=== PATIENT | female | born 1970 | race Caucasian/White ===

== ENCOUNTER 2019-07-17 18:24 | Emergency (ER) | payer OTHER ==
[2019-07-17 18:36] VITALS: BMI 24.0
[2019-07-17 19:11] LABS: BASO % 0.5 % (0-2.0); EOS % 1.8 % (0-4.5); HEMATOCRIT 40.1 % (32.4-45.2); HEMOGLOBIN 13.7 GM/dL (10.7-15.3); LYMPH % 34.8 % (8-40); MCH 32.5 pg (25.7-33.7); MCHC 34.2 g/dl (32.0-36.0); MEAN CELL VOLUME 95.1 fl (80-96); MEAN PLT VOLUME 6.9 fl (7.5-11.1); MONO % 7.3 % (3.8-10.2); NEUT % 55.6 % (42.8-82.8); PLATELET COUNT 285 K/MM3 (134-434); RBC 4.22 M/mm3 (3.60-5.2); WHITE BLOOD COUNT 7.3 K/mm3 (4.0-10.0)
[2019-07-17] MEDS ORDERED: ACETAMINOPHEN 650 MG/20.3 ML ORAL SOLUTION (CUPS) PO ONE (19:21)
[2019-07-17] MEDS ORDERED: ACETAMINOPHEN 1000 MG/100 ML VIAL (NON FORMULARY) IVPB ONE (19:48)
[2019-07-17] MEDS ORDERED: ACETAMINOPHEN INJECTION 100 ML IVPB ONE (19:52)
[2019-07-17 20:38] VITALS: TEMP 98.1
[2019-07-17 20:42] LABS: PH,URINE 6.5 (5.0-8.0); URINE APPEARANCE Slightly Cloudy; URINE BILIRUBIN 1+ (NEGATIVE); URINE COLOR Red; URINE GLUCOSE (UA) Negative (NEGATIVE); URINE KETONE Trace (NEGATIVE); URINE LEUK ESTERASE Trace (NEGATIVE); URINE NITRITE Positive (NEGATIVE); URINE PROTEIN 3+ (NEGATIVE); URINE UROBILINOGEN 0.2 mg/dL (0.2-1.0)
[2019-07-17 20:54] LABS: EPI CELLS 3.3 /HPF (0-5/HPF); HYALINE CASTS 0.81 /lpf (0-8); URINE BACTERIA 0 /hpf (NEGATIVE); URINE RBC 1057.5 /hpf (0-4); URINE WBC 3.1 /hpf (0-5)
--- NOTE | 2019-07-17 21:15 | PDOC ---
Documentation entered by Jennifer Zelaya SCRIBE, acting as scribe for Claire Mistry MD. Claire Mistry MD: This documentation has been prepared by the scribe, Jennifer Zelaya SCRIBE, under my direction and personally reviewed by me in its entirety. I confirm that the documentation accurately reflects all work, treatment, procedures, and medical decision making performed by me. History of Present Illness - General Chief Complaint: Vaginal Bleeding Stated Complaint: 4 WEEKS /VAGINAL BLEEDING Time Seen by Provider: 07/17/19 19:01 History Source: Patient Exam Limitations: No Limitations - History of Present Illness Initial Comments: 07/17/19 19:54 The patient is a 49-year-old female with no significant past medical history who presents to the emergency department with vaginal bleeding. The patient is s /p in vitro 06/29, presents today with vaginal bleeding and lower abdominal pain. Denies daily use of medications, but reports daily use of . The patient reports she had a miscarriage 2 years ago. Allergies: Seafood and naproxen FACILITY MAINTENANCE MANAGER: Dr. Isi Francois. Past History - Past Medical History Allergies/Adverse Reactions: Allergies Allergy/AdvReac Type Severity Reaction Status Date / Time fish derived Allergy Intermediate Verified 07/17/19 18:31 naproxen sodium Allergy Intermediate Verified 07/17/19 18:31 [From Anaprox] Home Medications: Ambulatory Orders Medroxyprogesterone Acet [Medroxyprogesterone Acetate] 10 mg PO DAILY 05/15/14 Cephalexin Monohydrate [Keflex -] 500 mg PO BID #20 capsule 07/17/19 Estradiol 07/17/19 Anemia: No Asthma: No Cancer: No Cardiac Disorders: No CVA: No COPD: No CHF: No Dementia: No Diabetes: No GI Disorders: No Disorders: No HTN: No Hypercholesterolemia: No Liver Disease: No Seizures: No Thyroid Disease: No - Surgical History Abdominal Surgery: No Appendectomy: No Cardiac Surgery: No Lung Surgery: No Neurologic Surgery: No Orthopedic Surgery: No - Reproductive History Is Patient Now?: Yes (#): 2 Para: 0 Spontaneous : 1 - Psycho Social/Smoking Cessation Hx Smoking History: Never smoked Hx Alcohol Use: No Drug/Substance Use Hx: No Substance Use Type: None Hx Substance Use Treatment: No Review of Systems - Review of Systems Able to Perform ROS?: Yes Comments:: 07/17/19 19:54 CONSTITUTIONAL: Absent: fever, chills, diaphoresis, generalized weakness, malaise, loss of appetite HEENT: Absent: rhinorrhea, nasal congestion, throat pain, throat swelling, difficulty swallowing, mouth swelling, ear pain, eye pain, visual Changes CARDIOVASCULAR: Absent: chest pain, syncope, palpitations, irregular heart rate, lightheadedness , peripheral edema RESPIRATORY: Absent: cough, shortness of breath, dyspnea with exertion, orthopnea, wheezing, stridor, hemoptysis GASTROINTESTINAL: +lower abdominal pain. Absent: abdominal distension, nausea, vomiting, diarrhea, constipation, melena, hematochezia GENITOURINARY: +vaginal bleeding. Absent: dysuria, frequency, urgency, hesitancy, flank pain, genital pain MUSCULOSKELETAL: Absent: myalgia, arthralgia, joint swelling SKIN: Absent: rash, itching, pallor HEMATOLOGIC/IMMUNOLOGIC: Absent: easy bleeding, easy bruising, lymphadenopathy, frequent infections ENDOCRINE: Absent: unexplained weight gain, unexplained weight loss, heat intolerance, cold intolerance NEUROLOGIC: Absent: headache, focal weakness or paresthesias, dizziness, unsteady gait, seizure, mental status changes, bladder or bowel incontinence PSYCHIATRIC: Absent: anxiety, depression, suicidal or homicidal ideation, hallucinations. *Physical Exam - Vital Signs Last Vital Signs Temp Pulse Resp BP Pulse Ox 98 F 66 18 142/71 99 07/17/19 18:33 07/17/19 18:33 07/17/19 18:33 07/17/19 18:33 07/17/19 18:33 - Physical Exam 07/17/19 20:18 GENERAL: Well-appearing, well-nourished 49 year old female, No apparent distress. HEENT: Normocephalic, atraumatic. PERRL, EOM intact. CARDIOVASCULAR: Normal S1, S2. Regular rate and rhythm. PULMONARY: Clear to auscultation bilaterally. ABDOMEN: Soft, non-distended, non-tender. : exam deferred at this time. EXTREMITIES: Normal ROM in all four extremities. No gross deformities. SKIN: Warm, dry. No rash NEUROLOGICAL: No focal neurological deficits. Conversant and ambulatory with a steady gait. ED Treatment Course - LABORATORY CBC & Chemistry Diagram: 07/17/19 19:00 - ADDITIONAL ORDERS Additional order review: 07/17/19 19:00 RBC 4.22 MCV 95.1 MCHC 34.2 RDW 13.0 MPV 6.9 L Neutrophils % 55.6 Lymphocytes % 34.8 D Monocytes % 7.3 Eosinophils % 1.8 Basophils % 0.5 - RADIOLOGY Radiology Studies Ordered: Category Date Time Status TRANSVAGINAL US PREG [US] Stat Ultrasound 07/17/19 19:12 Taken - Medications Given in the ED: ED Medications Discontinued Medications Generic Name Dose Route Start Last Admin Trade Name Iesha PRN Reason Stop Dose Admin Acetaminophen 650 mg 07/17/19 19:21 07/17/19 19:53 Tylenol Oral Solution - PO 07/17/19 19:22 Not Given ONCE ONE Acetaminophen 1,000 mg 07/17/19 19:48 07/17/19 20:07 Ofirmev Injection - IVPB 07/17/19 19:49 1,000 mg ONCE ONE Administration Medical Decision Making - Medical Decision Making 07/17/19 21:11 Endovaginal ultrasound findings 4.7 mm hypoechoic structure in the fundal portion of the endometrial stripe which may represent an early gestational sac at 5 weeks 2 days No pole, no yolk sac, no activity is noted Cannot exclude demise or ectopic 1 cm left ovarian cyst Right ovary appears normal Duplex ultrasound is appropriate arterial and venous flow to both ovaries Case discussed with Dr. Nixon who is covering for Dr. Jimenez Francois her lead embedded software engineer Patient follow-up tomorrow with her FACILITY MAINTENANCE MANAGER for repeat beta-hCG and ultrasound early w threatened ab or etopic, need to have repeat bhcg and US tomorrow Discharge - Discharge Information Problems reviewed: Yes Clinical Impression/Diagnosis: Vaginal bleeding affecting early UTI (urinary tract infection) Qualifiers: Urinary tract infection type: acute cystitis Hematuria presence: without hematuria Qualified Code(s): N30.00 - Acute cystitis without hematuria Condition: Good Disposition: HOME - Admission No - Additional Discharge Information Prescriptions: Cephalexin Monohydrate [Keflex -] 500 mg PO BID #20 capsule - Follow up/Referral Referrals: Carey Page MD [Primary Care Provider] - - Patient Discharge Instructions Patient Printed Discharge Instructions: DI for Vaginal Bleeding During Additional Instructions: You mus see your physicist solid state tomorrow in the office to have repeat bhcg and ultrasound At this early stage we cannot exclude demise or ectopic Return for worsening symptoms Print Language: UGANDAN - Post Discharge Activity
[2019-07-17] MEDS ORDERED: CEPHALEXIN MONOHYDRATE 500 MG CAPSULE (UD) PO STA (21:25)
[2019-07-17] MEDS ORDERED: CEPHALEXIN MONOHYDRATE 500 MG CAPSULE (UD) ONE (21:33)
[2019-07-17 21:45] VITALS: BP 121/75; PULSE 64
== END 2019-07-17 21:40 | disposition home or self-care (01) ==
LOC: JER 18:24
PROC: 3E033NZ Introduction of Analgesics, Hypnotics, Sedatives into Peripheral Vein, Percutaneous Approach (ICD-10-PCS; principal; 2019-07-17)
DX: O26.891 Other specified pregnancy related conditions, first trimester (principal); O20.8 Other hemorrhage in early pregnancy; O23.11 Infections of bladder in pregnancy, first trimester; N30.90 Cystitis, unspecified without hematuria; O34.81 Maternal care for other abnormalities of pelvic organs, first trimester; N83.292 Other ovarian cyst, left side; Z3A.01 Less than 8 weeks gestation of pregnancy; Z88.6 Allergy status to analgesic agent; Z91.013 Allergy to seafood
CPT/HCPCS: 36415; 76817-TC; 81003; 84702; 85025; 86850; 86900; 86901; 87086; 96374; 99283-25; J0131

== ENCOUNTER 2021-01-10 05:04 | Day surgery (SDC) | payer OTHER ==
[2021-01-08 16:46] VITALS: BMI 23.1
[2021-01-10 11:46] VITALS: TEMP 97.6
[2021-01-10 12:34] VITALS: BP 126/76; PULSE 49
== END 2021-01-10 12:49 | disposition home or self-care (01) ==
LOC: JASU-ENDO 05:04
PROVIDERS: ATTEND Internal Medicine Gastroenterology
PROC: 0DBP8ZX Excision of Rectum, Via Natural or Artificial Opening Endoscopic, Diagnostic (ICD-10-PCS; 2021-01-10)
PROC: 0DBL8ZX Excision of Transverse Colon, Via Natural or Artificial Opening Endoscopic, Diagnostic (ICD-10-PCS; principal; 2021-01-10 11:15)
DX: Z12.11 Encounter for screening for malignant neoplasm of colon (principal); K62.1 Rectal polyp; K63.5 Polyp of colon
CPT/HCPCS: 81025; 88305-TC

== ENCOUNTER 2023-12-13 12:41 | Emergency (ER) | payer OTHER ==
[2023-12-13 12:52] VITALS: TEMP 98; BMI 24.7
[2023-12-13 13:50] VITALS: BP 133/76; PULSE 56; RESP 15
== END 2023-12-13 14:26 | disposition home or self-care (01) ==
LOC: JER 12:41
DX: I10 Essential (primary) hypertension (principal)
CPT/HCPCS: 82962; 93005; 93010; 99283-25